=== PATIENT | female | born 1995 | race Caucasian/White ===

== ENCOUNTER 2019-01-10 13:54 | Emergency (ER) | payer MEDICAID, OTHER ==
[~2019-01-10] VITALS: Ht 149.9 cm; Wt 68.5 kg
[~2019-01-10 13:54] MED LIST: ALBU8.5H8 INH; HYDR50TA15 PO
[2019-01-10 14:00] VITALS: BP 136/67; PULSE 87; RESP 20; Ht 149.9 cm; Wt 68.5 kg
[2019-01-10] MEDS ORDERED: SOD CHLORIDE 0.9% 1,000 ML IV STA (14:33)
== END 2019-01-10 17:03 | disposition home or self-care (01) ==
LOC: FTE 13:54
DX: O26.892 Other specified pregnancy related conditions, second trimester (principal); R42 Dizziness and giddiness; R53.1 Weakness; O99.52 Diseases of the respiratory system complicating childbirth; J45.909 Unspecified asthma, uncomplicated; Z3A.20 20 weeks gestation of pregnancy
CPT/HCPCS: 36415; 76801; 80053; 81001; 84702; 85025; 86900; 86901; 87086; 93005; J7030; Z7502